=== PATIENT | male | born 1985 | race Caucasian/White ===

== ENCOUNTER 2019-10-02 09:27 | Emergency (ER) | payer OTHER ==
--- NOTE | 2019-10-02 09:50 | ED Physician Documentation ---
PD HPI HEENT - Stated complaint Stated Complaint: L EAR PX - Chief complaint Chief Complaint: Heent - History obtained from History obtained from: Patient - History of Present Illness Timing - onset: Yesterday Timing - details: Gradual onset Location: Left ear Improves: Nothing Associated symptoms: No: Fever, Congestion, Rhinorrhea, Trismus, Swollen nodes, Facial swelling, Headache Recently seen: Not recently seen - Additional information Additional information: There is a 34-year-old man who presents with complaints of left ear pain. It started to feel little plugged 2 days ago but then he flew yesterday and had a lot of pain. He took Advil and Sudafed in preparation for the flight. Pain is waxing and waning from about a 1 out of [address] up to a 7 out of 10. He denies any stuffy nose or sore throat. There is been no drainage from the ear although it occasionally feels a little moist. There is a constant ringing. No fever no tooth pain. Review of Systems Constitutional: denies: Fever Ears: reports: Loss of hearing, Ear pain, Tinnitus/ringing. denies: Drainage/discharge Nose: denies: Rhinorrhea / runny nose, Congestion Throat: denies: Dental pain / toothache PD PAST MEDICAL HISTORY - Present Medications Home Medications: Ambulatory Orders Medication Instructions Recorded Confirmed Neomycin/Polymyx/Hc Otic Drops 4 drops OT TID #1 bottle 10/02/19 [Cortisporin Ear Susp] - Allergies Allergies/Adverse Reactions: Allergies Allergy/AdvReac Type Severity Reaction Status Date / Time No Known Drug Allergies Allergy Verified 10/02/19 09:30 PD ED PE NORMAL - Vitals Vital signs reviewed: Yes - General General: Alert and oriented X 3, No acute distress, Well developed/nourished - HEENT HEENT: Atraumatic, PERRL, EOMI, Moist mucous membranes, Pharynx benign. No: Ears normal (There is cerumen in the right ear canal this not completely blocking it. The left ear has no pain with movement of the tragus or pinna but is completely occluded with cerumen. No pain over the mastoid or the angle of the jaw.) - Neck Neck: No: No adenopathy Results - Vitals Vitals: Vital Signs - 24 hr 10/02/19 10/02/19 09:30 11:03 Temperature 36.5 C Heart Rate 61 55 L Respiratory 16 16 Rate Blood Pressure 121/74 114/66 O2 Saturation 98 98 Oxygen O2 Source Room air PD MEDICAL DECISION MAKING - ED course Complexity details: re-evaluated patient, d/w patient ED course: Nursing staff irrigated the ears and there was quite a bit of wax from both ears. The left ear canal still has edema and erythema and some tenderness. We will treat with Cortisporin otic and patient was instructed on how to use eardrops. Ibuprofen if needed for pain. Departure - Departure Disposition: 01 Home, Self Care Clinical Impression: Impacted cerumen of both ears Otitis externa Qualifiers: Otitis externa type: unspecified type Chronicity: acute Laterality: left Qualified Code(s): H60.502 - Unspecified acute noninfective otitis externa, left ear Condition: Good Instructions: ED Otitis Externa Follow-Up: Your,Doctor [Other] Prescriptions: Neomycin/Polymyx/Hc Otic Drops [Cortisporin Ear Susp] 4 drops OT TID #1 bottle Comments: Avoid getting any liquid in the ear other than the drops that were prescribed for the left ear. When you are in the shower I recommend a cotton ball set just in the ear to prevent water from getting in. Use the eardrops 3 times a day 3 to 4 drops as discussed. Recheck with your primary care provider when you return home if your symptoms are not improving. May use ibuprofen for the pain. Return if you have increasing pain, develop fever or have swelling around the front or back of the ear especially if associated with a lot of tenderness.
[2019-10-02 11:04] VITALS: BP 114/66
== END 2019-10-02 11:19 | disposition home or self-care (01) ==
LOC: ED 09:27
DX: H61.23 Impacted cerumen, bilateral (principal); H60.502 Unspecified acute noninfective otitis externa, left ear
CPT/HCPCS: 99282; 99283